=== PATIENT | female | born 1995 | race Caucasian/White ===

== ENCOUNTER 2017-03-15 23:32 | Emergency (ER) | payer OTHER ==
[~2017-03-15 23:32] MED LIST: IBUP800 PO; METF-324 PO; SYNT112T PO
--- NOTE | 2017-03-16 00:39 | PD ---
HPI Chief Complaint spotting after intercourse Date Seen: Mar 16, 2017 Time Seen: 00:31 Travel History International Travel<30 Days: No Contact w/Intl Traveler<30Days: No Known Affected Area: No History of Present Illness HPI 21-year-old 4 para 1 AB 2 at 25 weeks EGA who reports having spotting after intercourse earlier this evening. No leakage of fluid or contractions. History Past Medical History Narrative Medical hypothyroid Medical History: Denies Significant Hx Past Surgical History Narrative Surgical hip Family History Family History: Negative Social History Alcohol Use: No Tobacco Use: No Substance Abuse: No Allergies-Medications (Allergen,Severity, Reaction): Coded Allergies: metoclopramide (Unverified Allergy, Severe, VIOLENT, TWITCHY, 01/08/17) Home Meds Active Scripts Ibuprofen (Motrin 800 Mg Tab) 800 Mg Tab, 800 MG PO Q8H Y for PAIN, #20 TAB Prov:Lily Gomez MD 04/17/14 Reported Medications Metformin ER 24 HR (Metformin ER 24 HR) 1,000 Mg Tab, 1000 MG PO BIDPC, TAB 04/17/14 Synthroid 112 mcg (Synthroid 112 mcg) 112 Mcg Tab, 100 MCG PO DAILY, TAB TAKE ON AN EMPTY STOMACH 10/16/13 Review of Systems Except as stated in HPI: all other systems reviewed are Neg Physical Exam Narrative GENERAL: Well-nourished, well-developed patient. SKIN: Warm and dry. HEAD: Normocephalic and atraumatic. EYES: No scleral icterus. No injection or drainage. ENT: No nasal drainage noted. Mucous membranes pink. Airway patent. NECK: Supple, trachea midline. No JVD. CARDIOVASCULAR: Regular rate and rhythm without murmurs, gallops, or rubs. RESPIRATORY: Breath sounds equal bilaterally. No accessory muscle use. ABDOMEN/GI: Abdomen soft, non-tender, bowel sounds present, no rebound, no guarding Gravid to [-] weeks size Fundal Height: [-] GENITOURINARY: External Genitalia: intact and normal in appearance BUS glands: [-] Cervix: [-] Dilatation: [-Closed] Effacement: [Long-] Station: [High-] Presentation: [-] Membranes: [intact or ruptured] Uterine Contractions: [-] FHT's: Category: [-] Baseline: [-] Reactive: [-] Variability: [-] Decels: [-] EXTREMITIES: No cyanosis or edema. BACK: Nontender without obvious deformity. No CVA tenderness. NEUROLOGICAL: Awake and alert. Motor and sensory grossly within normal limits. Five out of 5 muscle strength in all muscle groups. Normal speech. Data Data Vital Signs Reviewed: Yes MDM Medical Record Reviewed: Yes Narrative Course / MDM Assessment: Postcoital spotting at 25 weeks gestation Plan: Reassurance was given, follow-up as needed. Diagnosis Diagnosis: Primary Impression: 25 weeks gestation of Additional Impression: Postcoital bleeding Disposition: DISCHARGE HOME Condition: Good Marcellus Treviño MD Mar 16, 2017 00:39
== END 2017-03-16 03:24 | disposition home or self-care (01) ==
LOC: HOBED 23:32
DX: O26.852 Spotting complicating pregnancy, second trimester (principal); N93.0 Postcoital and contact bleeding; Z3A.25 25 weeks gestation of pregnancy
CPT/HCPCS: 99284